=== PATIENT | male | born 1940 | race Caucasian/White ===

== ENCOUNTER 2021-12-11 12:00 | Emergency (ER) | payer OTHER, MEDICARE ==
[~2021-12-11] VITALS: Ht 190 cm; Wt 96.1 kg
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
[2021-12-11 12:38] LABS: HEMATOCRIT 38 % (40-54); HEMOGLOBIN 13.7 g/dL (13.3-17.7); MEAN CORPUSCULAR HEMOGLOBIN 33 pg (25-34); MEAN CORPUSCULAR HGB CONC 36 g/dL (32-36); MEAN CORPUSCULAR VOLUME 91 fL (80-99); MEAN PLATELET VOLUME 10.9 fL (9.0-12.2); PLATELET COUNT 256 10^3/uL (130-400); WHITE BLOOD COUNT 10.2 10^3/uL (4.3-11.0)
[2021-12-11 12:52] LABS: PROTHROMBIN TIME PATIENT 13.9 SEC (12.2-14.7)
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
[2021-12-11 12:59] LABS: CREATININE SERUM 1.21 MG/DL (0.60-1.30); POTASSIUM 3.9 MMOL/L (3.6-5.0)
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
[2021-12-11 13:26] VITALS: BP 133/86
== END 2021-12-11 13:26 | disposition home or self-care (01) ==
LOC: ER 12:02
DX: S30.1XXA Contusion of abdominal wall, initial encounter (principal); S09.91XA Unspecified injury of ear, initial encounter; I48.91 Unspecified atrial fibrillation; Z79.01 Long term (current) use of anticoagulants; V89.2XXA Person injured in unspecified motor-vehicle accident, traffic, initial encounter; Y92.410 Unspecified street and highway as the place of occurrence of the external cause
CPT/HCPCS: 36415; 70450; 71045; 72125; 80048; 85027; 85610; 85730; 93041

== ENCOUNTER 2021-12-23 11:52 | Emergency (ER) | payer MEDICARE ==
[~2021-12-23] VITALS: Ht 190.5 cm; Wt 96.1 kg
--- NOTE | 2021-12-23 12:30 | ED General ---
General Chief Complaint: General Problems/Pain Stated Complaint: N/V,FATIGUE Nursing Triage Note: PT TO RM 4 BY EMS WITH CC OF NAUSEA, VMOITING, AND DIZZINESS. EMS REPORTS HAD DIFFICULITY WAKING PT THIS AM AND HYPOTENSIVE ON SENCE. IV FLUIDS INFUSING UPON ARRIVAL. HX OF A-FIB. PT IS A&OX4. Source of Information: Patient, Old Records History of Present Illness Date Seen by Provider: Dec 23, 2021 Time Seen by Provider: 12:17 Initial Comments This is an 81-year-old male who presented to the ER via [facility] for concerns of altered mental status this morning. Patient was reported to have difficulty waking this morning. Spouse reports that he also had 1 episode of vomiting at home. Patient states he remembers having dizziness whenever he tried to get up and walk, does not recall vomiting. He is complaining of a little bit of nausea at this time. He was giving 1 L of normal saline per EMS upon arrival due to soft blood pressure of 83/58, he reports no recent illness, no falls. BG upon arrival 212. Allergies and Home Medications Allergies Coded Allergies: No Known Drug Allergies (Unverified , 12/23/21) Patient Home Medication List Home Medication List Reviewed: Yes Review of Systems Review of Systems Constitutional: dizziness, weakness EENTM: no symptoms reported Respiratory: no symptoms reported Cardiovascular: no symptoms reported, other (h/o afib ) Gastrointestinal: see HPI Genitourinary: No dysuria, No frequency, No hematuria, No incontinence, No pain Musculoskeletal: no symptoms reported Skin: no symptoms reported Psychiatric/Neurological: See HPI Hematologic/Lymphatic: No Symptoms Reported Immunological/Allergic: no symptoms reported Past Invtubj-Jejskc-Peljgv Hx Immunizations Up To Date First/Initial COVID19 Vaccinat: RECEIVED, UNK WHEN Second COVID19 Vaccination Lauri: RECEIVED, UNK WHEN Physical Exam Vital Signs Vital Signs - First Documented 12/23/21 11:59 Temp 36.2 Pulse 58 Resp 20 B/P (MAP) 125/62 (83) Pulse Ox 95 O2 Delivery Room Air Capillary Refill : Less Than 3 Seconds Height, Weight, BMI Height: '" Weight: lbs. oz. kg; 26.00 BMI Method: General Appearance: No Apparent Distress, WD/WN Eyes: Bilateral Eye Normal Inspection, Bilateral Eye PERRL, Bilateral Eye EOMI HEENT: PERRL/EOMI, Normal ENT Inspection, Pharynx Normal, Moist Mucous Me mbranes Neck: Full Range of Motion, Normal Inspection, Non Tender Respiratory: Lungs Clear, Normal Breath Sounds, No Accessory Muscle Use, No Respiratory Distress Cardiovascular: No Gallop, No Murmur, Normal Peripheral Pulses, Irregularly Irregular Gastrointestinal: Normal Bowel Sounds, No Organomegaly, No Pulsatile Mass, Non Tender, Soft Extremity: Normal Capillary Refill, Normal Inspection, Normal Range of Motion, No Calf Tenderness Neurologic/Psychiatric: Alert, Oriented x3, No Motor/Sensory Deficits, Normal Mood/Affect, production gear cutter II-XII Norm as Tested; No Facial Droop, No Motor Weakness, No Sensory Deficit Skin: Normal Color, Warm/Dry Progress/Results/Core Measures Suspected Sepsis SIRS Temperature: Pulse: 58 Respiratory Rate: 20 Laboratory Tests 12/23/21 12:00: White Blood Count 10.2 Blood Pressure 125 /62 Mean: 83 Laboratory Tests 12/23/21 12:00: Creatinine 1.27, INR Comment 1.1, Platelet Count 319, Total Bilirubin 0.6 Results/Orders Lab Results Laboratory Tests Test 12/23/21 12:00 12/23/21 13:51 12/23/21 14:43 Range/Units White Blood Count 10.2 4.3-11.0 10^3/uL Red Blood Count 3.59 L 4.30-5.52 10^6/uL Hemoglobin 11.7 L 13.3-17.7 g/dL Hematocrit 33 L 40-54 % Mean Corpuscular Volume 93 80-99 fL Mean Corpuscular Hemoglobin 33 25-34 pg Mean Corpuscular Hemoglobin Concent 35 32-36 g/dL Red Cell Distribution Width 12.5 10.0-14.5 % Platelet Count 319 130-400 10^3/uL Mean Platelet Volume 11.3 9.0-12.2 fL Immature Granulocyte % (Auto) 0 % Neutrophils (%) (Auto) 84 H 42-75 % Lymphocytes (%) (Auto) 9 L 12-44 % Monocytes (%) (Auto) 5 0-12 % Eosinophils (%) (Auto) 1 0-10 % Basophils (%) (Auto) 1 0-10 % Neutrophils # (Auto) 8.6 H 1.8-7.8 10^3/uL Lymphocytes # (Auto) 0.9 L 1.0-4.0 10^3/uL Monocytes # (Auto) 0.5 0.0-1.0 10^3/uL Eosinophils # (Auto) 0.1 0.0-0.3 10^3/uL Basophils # (Auto) 0.1 0.0-0.1 10^3/uL Immature Granulocyte # (Auto) 0.0 0.0-0.1 10^3/uL Prothrombin Time 14.2 12.2-14.7 SEC INR Comment 1.1 0.8-1.4 Activated Partial Thromboplast Time 26 24-35 SEC D-Dimer 0.98 H 0.00-0.49 UG/ML Sodium Level 139 135-145 MMOL/L Potassium Level 4.3 3.6-5.0 MMOL/L Chloride Level 102 98-107 MMOL/L Carbon Dioxide Level 24 21-32 MMOL/L Anion Gap 13 5-14 MMOL/L Blood Urea Nitrogen 30 H 7-18 MG/DL Creatinine 1.27 0.60-1.30 MG/DL Estimat Glomerular Filtration Rate 57 BUN/Creatinine Ratio 24 Glucose Level 242 H 70-105 MG/DL Calcium Level 11.0 H 8.5-10.1 MG/DL Corrected Calcium 11.0 H 8.5-10.1 MG/DL Magnesium Level 1.3 L 1.6-2.4 MG/DL Total Bilirubin 0.6 0.1-1.0 MG/DL Aspartate Amino Transf (AST/SGOT) 16 5-34 U/L Alanine Aminotransferase (ALT/SGPT) 15 0-55 U/L Alkaline Phosphatase 73 40-136 U/L Total Creatine Kinase 73 30-200 U/L Creatine Kinase MB 2.3 <6.6 NG/ML Myoglobin 90.8 10.0-92.0 NG/ML Troponin I 0.069 H 0.060 H <0.028 NG/ML Total Protein 7.2 6.4-8.2 GM/DL Albumin 4.0 3.2-4.5 GM/DL Urine Color YELLOW Urine Clarity CLEAR Urine pH 6.5 5-9 Urine Specific [place] 1.015 L 1.016-1.022 Urine Protein NEGATIVE NEGATIVE Urine Glucose (UA) TRACE H NEGATIVE Urine Ketones NEGATIVE NEGATIVE Urine Nitrite NEGATIVE NEGATIVE Urine Bilirubin NEGATIVE NEGATIVE Urine Urobilinogen 0.2 < = 1.0 MG/DL Urine Leukocyte Esterase NEGATIVE NEGATIVE Urine RBC (Auto) NEGATIVE NEGATIVE Urine RBC NONE /HPF Urine WBC NONE /HPF Urine Squamous Epithelial Cells NONE /HPF Urine Crystals NONE /LPF Urine Bacteria NEGATIVE /HPF Urine Casts NONE /LPF Urine Mucus NEGATIVE /LPF Urine Culture Indicated NO My Orders Orders - LINDA FORDE APRN Ua Culture If Indicated (12/23/21 12:08) Cbc With Automated Diff (12/23/21 12:25) Protime With Inr (12/23/21 12:25) Partial Thromboplastin Time (12/23/21 12:25) Comprehensive Metabolic Panel (12/23/21 12:25) Fibrin Degradation Products (12/23/21 12:25) Troponin I [place] (12/23/21 12:25) Chest 1 View, Ap/Pa Only (12/23/21 12:25) Ekg Tracing (12/23/21 12:25) Accucheck Stat ONCE (12/23/21 12:25) Ed Iv/Invasive Line Start (12/23/21 12:25) Vital Signs Stroke Patient Q15M (12/23/21 12:25) Ct Head Wo-R/O Stroke (12/23/21 12:25) O2 (12/23/21 12:25) Intake & Output 06,14,22 (12/23/21 12:25) Monitor-Rhythm Ecg Trace Only (12/23/21 12:25) Dysphagia Screening Tool Q10MX1 (12/23/21 12:25) Magnesium (12/23/21 12:44) Creatine Kinase (12/23/21 12:44) Creatine Kinase Mb (12/23/21 12:44) Myoglobin Serum (12/23/21 12:44) Troponin I Ghazal (12/23/21 15:00) Lidocaine 2% (Urojet) (Xylocaine Urojet) (12/23/21 14:30) [place] Cath (12/23/21 15:03) Magnesium Oxide Tablet (Mag Ox Tablet) (12/23/21 15:45) Medications Given in ED Vital Signs/I&O 12/23/21 12/23/21 11:59 16:37 Temp 36.2 Pulse 58 73 Resp 20 20 B/P (MAP) 125/62 (83) 138/76 Pulse Ox 95 93 O2 Delivery Room Air Room Air Capillary Refill : Less Than 3 Seconds Blood Pressure Mean: 83 Progress Note : Progress Note Patient examined and in no acute distress. No focal or gross neurological deficits appreciated on exam. He currently has 1 L of normal saline infusing. His vital signs are stable at this time. He does have a history of atrial fibrillation, rate controlled. Currently rate of 70s. He is reporting a little bit of nausea but no other symptoms at this time. States that he does not recall vomiting earlier today, his only recollection is of feeling dizziness. Labs reviewed, no elevation in white count, Hgb stable. BUN-30 likely from dehydration. He responded well with one liter NS, BP 120's. HR stable. Slightly increased Troponin-0.069. Remains asymptomatic. CXR unremarkable, UA neg for UTI. CT negative for acute pathology. 1259: Discussed with Dr. Graves, will monitor in ER for 3 hour troponin repeat. Repeat troponin decreased 0.060, updated Dr. Graves. As he has no established almond paste mixer, we will schedule him follow up in office. Appointment made prior to patient discharge. Discussed use of anticoagulants with patient and spouse, no contraindications noted. However, they would like to wait for his follow up with cardiology in 2 d ays before starting. Discharge POC reviewed and they are agreeable with plan. ECG Initial ECG Impression Date: Dec 23, 2021 Initial ECG Impression Time: 12:40 Initial ECG Rate: 69 Initial ECG Rhythm: A Fib/Flutter Initial ECG Impression: Atrial Fibrillation Initial ECG Comparisson: No Previous ECG Available Diagnostic Imaging Diagonstic Imaging: CT Plain Films/CT/US/NM/MRI: head Comments [facility]. [place], [place] NAME: WAYNE ABRAMS [facility] REC#: [id number] PT STATUS: REG ER : 1940 PHYSICIAN: LINDA FORDE APRN ADMIT DATE: 12/23/21/ER Draft Date of Exam:12/23/21 CT HEAD WO-R/O STROKE CLINICAL INDICATION: Patient with nausea, vomiting and fatigue. Patient had trouble waking up this morning. EXAM: Axial CT scan of the brain performed without IV contrast. Auto Exposure Controls were utilized during the CT exam to meet ALARA standards for radiation dose reduction. COMPARISON: CT scan of the head and cervical spine without contrast dated 12/11/2021. FINDINGS: There is no evidence of acute cerebral infarct, intracranial hemorrhage, or gross mass effect. The brain parenchymal volume appears appropriate for patient's age. There is normal martinez-white matter distinction. There is no significant midline shift or herniation. There is no evidence of hydrocephalus. The basal cisterns are unremarkable. The skull, extracranial soft tissue, and orbits are unremarkable. There is oodzc-sg-nlrmdgad amount of mucosal thickening involving the frontal sinus and ethmoid sinus. There is minimal mucosal thickening involving the right maxillary sinus. Temporal bones show no significant abnormality. IMPRESSION: 1: There is no CT evidence of acute intracranial process. There is no dense vessel sign. Results of this report were discussed with Linda Forde APRN, via the telephone on 12/23/2021 at 1337 hours. Dictated on workstation # [id number] Dict: 12/23/21 1318 Trans: 12/23/21 1345 [id number] [id number] Interpreted by: WILD PRATT MD Electronically signed by: Maria A Imaging: Xray Plain Films/CT/US/NM/MRI: chest Comments [facility] [place] NAME: WAYNE ABRAMS [facility] REC#: [id number] PT STATUS: REG ER : 1940 PHYSICIAN: LINDA FORDE APRN ADMIT DATE: 12/23/21/ER Draft Date of Exam:12/23/21 CHEST 1 VIEW, AP/PA ONLY HISTORY: Altered mental status, nausea, vomiting, and dizziness. COMPARISON: 12/11/2021. TECHNIQUE: Frontal view of the chest. FINDINGS: Lung volumes are normal. There is elevation of the right hemidiaphragm, which is stable since the prior exam. There is linear opacity in the left lung base. There is no pleural effusion or pneumothorax. The cardiac silhouette is normal in size. IMPRESSION: 1. Linear opacity in the left lung base, may represent atelectasis or infiltrate. Dictated on workstation # [id number] Dict: 12/23/21 1257 Trans: 12/23/21 1300 [id number] Interpreted by: LINO ROCHA MD Electronically signed by: Reviewed: Reviewed by Me Departure Communication (Admissions) Time/Spoke to Consulting Phy: 12:59 Dr. Graves Impression Primary Impression: Dehydration Additional Impressions: Dizziness Atrial fibrillation Disposition: 01 HOME, SELF-CARE Condition: Improved Departure-Patient Inst. Decision time for Depature: 15:23 Referrals: NO,LOCAL PHYSICIAN (PCP/Family) Primary Care Physician Patient Instructions: Dehydration, Adult ED Add. Discharge Instructions: Plan: 1. Follow up with Dr. Graves with cardiology on at 1:40pm, office is located [facility] [address] [place], [address] . Please arrive 30 minutes early to fill out paperwork. 2. Drink plenty of fluids to keep your urine pale yellow. 3. Follow up with your primary care provider in 7-10 days, please call to schedule. 4. Return for any new, concerning, or worsening symptoms. All discharge instructions reviewed with patient and/or family. Voiced understanding. Copy Copies To 1: JEFFREY GRAVES JR, MD Copies To 2: GERSON NICOLE MD, STORMY D RESIDENCE LEASING AGENT Dec 23, 2021 12:30
[2021-12-23 12:31] LABS: BASOPHILS # (AUTO) 0.1 10^3/uL (0.0-0.1); BASOPHILS % (AUTO) 1 % (0-10); EOSINOPHILS # (AUTO) 0.1 10^3/uL (0.0-0.3); EOSINOPHILS % (AUTO) 1 % (0-10); HEMATOCRIT 33 % (40-54); HEMOGLOBIN 11.7 g/dL (13.3-17.7); LYMPHOCYTES # (AUTO) 0.9 10^3/uL (1.0-4.0); LYMPHOCYTES % (AUTO) 9 % (12-44); MEAN CORPUSCULAR HEMOGLOBIN 33 pg (25-34); MEAN CORPUSCULAR HGB CONC 35 g/dL (32-36); MEAN CORPUSCULAR VOLUME 93 fL (80-99); MEAN PLATELET VOLUME 11.3 fL (9.0-12.2); MONOCYTES # (AUTO) 0.5 10^3/uL (0.0-1.0); MONOCYTES % (AUTO) 5 % (0-12); NEUTROPHILS # (AUTO) 8.6 10^3/uL (1.8-7.8); NEUTROPHILS % (AUTO) 84 % (42-75); PLATELET COUNT 319 10^3/uL (130-400); WHITE BLOOD COUNT 10.2 10^3/uL (4.3-11.0)
[2021-12-23 12:36] LABS: POTASSIUM 4.3 MMOL/L (3.6-5.0)
[2021-12-23 12:38] LABS: TOTAL PROTEIN 7.2 GM/DL (6.4-8.2)
[2021-12-23 12:39] LABS: FIBRIN DEGRADATION PRODUCTS 0.98 UG/ML (0.00-0.49); INR 1.1 (0.8-1.4); PROTHROMBIN TIME PATIENT 14.2 SEC (12.2-14.7)
[2021-12-23 12:40] LABS: BILIRUBIN,TOTAL 0.6 MG/DL (0.1-1.0)
[2021-12-23 12:42] LABS: CREATININE SERUM 1.27 MG/DL (0.60-1.30)
--- NOTE | 2021-12-23 13:00 | Diagnostic Imaging Report ---
HISTORY: Altered mental status, nausea, vomiting, and dizziness. COMPARISON: 12/11/2021. TECHNIQUE: Frontal view of the chest. FINDINGS: Lung volumes are normal. There is elevation of the right hemidiaphragm, which is stable since the prior exam. There is linear opacity in the left lung base. There is no pleural effusion or pneumothorax. The cardiac silhouette is normal in size. IMPRESSION: 1. Linear opacity in the left lung base, may represent atelectasis or infiltrate. Dictated by: Dictated on workstation # [id number]
[2021-12-23 13:03] LABS: MAGNESIUM 1.3 MG/DL (1.6-2.4)
[2021-12-23 13:10] LABS: CREATINE KINASE MB 2.3 NG/ML (<6.6)
--- NOTE | 2021-12-23 13:45 | Diagnostic Imaging Report ---
CLINICAL INDICATION: Patient with nausea, vomiting and fatigue. Patient had trouble waking up this morning. EXAM: Axial CT scan of the brain performed without IV contrast. Auto Exposure Controls were utilized during the CT exam to meet ALARA standards for radiation dose reduction. COMPARISON: CT scan of the head and cervical spine without contrast dated 12/11/2021. FINDINGS: There is no evidence of acute cerebral infarct, intracranial hemorrhage, or gross mass effect. The brain parenchymal volume appears appropriate for patient's age. There is normal martinez-white matter distinction. There is no significant midline shift or herniation. There is no evidence of hydrocephalus. The basal cisterns are unremarkable. The skull, extracranial soft tissue, and orbits are unremarkable. There is dvrxs-jt-kiuwkxih amount of mucosal thickening involving the frontal sinus and ethmoid sinus. There is minimal mucosal thickening involving the right maxillary sinus. Temporal bones show no significant abnormality. IMPRESSION: 1: There is no CT evidence of acute intracranial process. There is no dense vessel sign. Results of this report were discussed with Linda Munoz APRN, via the telephone on 12/23/2021 at 1337 hours. Dictated by: Dictated on workstation # [id number]
[2021-12-23] MEDS ORDERED: LIDOCAINE UROJET 2% GEL 10 ML PKG ONE (14:30)
[2021-12-23 14:50] LABS: BILIRUBIN,URINE NEGATIVE (NEGATIVE); CLARITY,URINE CLEAR; COLOR,URINE YELLOW; GLUCOSE, URINE (UA) TRACE (NEGATIVE); KETONES,URINE NEGATIVE (NEGATIVE); LEUKOCYTE ESTERASE ,URINE NEGATIVE (NEGATIVE); NITRITE,URINE NEGATIVE (NEGATIVE); PH,URINE 6.5 (5-9); PROTEIN,URINE NEGATIVE (NEGATIVE)
[2021-12-23 15:20] LABS: BACTERIA,URINE NEGATIVE /HPF
[2021-12-23] MEDS ORDERED: MAGNESIUM OXIDE (MAG-OX)400 MG TAB PO ONE (15:45)
[2021-12-23 16:37] VITALS: BP 138/76
== END 2021-12-23 16:37 | disposition home or self-care (01) ==
LOC: EDUNIT# 11:52 → ER 11:56
DX: E86.0 Dehydration (principal); I48.91 Unspecified atrial fibrillation
CPT/HCPCS: 36415; 51702; 70450; 71045; 80053; 81000; 82550; 82553; 83735; 83874; 84484; 85025; 85379; 85610; 85730; 93005; 93041

== ENCOUNTER → 2021-12-31 | Outpatient (CLI) | payer MEDICARE | LOC: CARD 13:47 | PROVIDERS: ATTEND Internal Medicine Cardiovascular Disease | DX: I08.2 Rheumatic disorders of both aortic and tricuspid valves (principal); I48.21 Permanent atrial fibrillation | CPT/HCPCS: 93306 ==

== ENCOUNTER 2022-01-23 12:21 | Inpatient (IN) | payer MEDICARE ==
[~2022-01-23] VITALS: Ht 190.5 cm; Wt 85.7 kg
[2022-01-23 14:14] LABS: BASOPHILS % (AUTO) 0 % (0-10); EOSINOPHILS % (AUTO) 1 % (0-10); HEMATOCRIT 21 % (40-54); HEMOGLOBIN 7.4 g/dL (13.3-17.7); LYMPHOCYTES # (AUTO) 0.8 10^3/uL (1.0-4.0); LYMPHOCYTES % (AUTO) 12 % (12-44); MEAN CORPUSCULAR HEMOGLOBIN 32 pg (25-34); MEAN CORPUSCULAR HGB CONC 35 g/dL (32-36); MEAN CORPUSCULAR VOLUME 93 fL (80-99); MEAN PLATELET VOLUME 10.3 fL (9.0-12.2); MONOCYTES # (AUTO) 0.5 10^3/uL (0.0-1.0); MONOCYTES % (AUTO) 8 % (0-12); NEUTROPHILS # (AUTO) 5.1 10^3/uL (1.8-7.8); NEUTROPHILS % (AUTO) 79 % (42-75); PLATELET COUNT 384 10^3/uL (130-400); WHITE BLOOD COUNT 6.4 10^3/uL (4.3-11.0)
[2022-01-23 14:17] LABS: ALBUMIN 4.3 GM/DL (3.2-4.5); POTASSIUM 3.9 MMOL/L (3.6-5.0)
[2022-01-23 14:18] LABS: CALCIUM 10.7 MG/DL (8.5-10.1)
[2022-01-23 14:21] LABS: BILIRUBIN,TOTAL 0.4 MG/DL (0.1-1.0); INR 1.6 (0.8-1.4); PROTHROMBIN TIME PATIENT 19.5 SEC (12.2-14.7)
[2022-01-23 14:23] LABS: CREATININE SERUM 0.97 MG/DL (0.60-1.30)
[2022-01-23] MEDS ORDERED: IOHEXOL 350 MG/ML 100 ML (OMNIPAQUE 350) VIAL IV ONE (14:45)
[2022-01-23] MEDS ORDERED: HOLD METFORMIN - RECEIVED CONTRAST 20 ML VIAL IV SCH (14:45)
[2022-01-23] MEDS ORDERED: NS 100 ML (IVPB) BAG IV ONE (14:45)
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
[2022-01-23] MEDS ORDERED: PANTOPRAZOLE 40 MG (PROTONIX) VIAL IV ONE (17:00)
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
[2022-01-23 18:20] VITALS: BP 130/72
[2022-01-23] MEDS ORDERED: NS IV 1000 ML 1,000 ML ONE (18:33)
[2022-01-23] MEDS: NS IV 1000 ML 1,000 ML IV SCH (19:44)
[2022-01-23] MEDS ORDERED: MILK OF MAGNESIA 400 MG/5 ML 30 ML UDC PO PRN (22:00)
[2022-01-23] MEDS ORDERED: BENZONATATE 100 MG (TESSALON) CAPSULE PO PRN (22:00)
[2022-01-23] MEDS ORDERED: ONDANSETRON 4 MG/2 ML (SDV) Z0FRAN IV PRN (22:00)
[2022-01-23] MEDS ORDERED: MELATONIN 3 MG TABLET PO PRN (22:00)
[2022-01-23] MEDS ORDERED: ANTACID SUSP 30 ML UDC (MYLANTA) PO PRN (22:00)
[2022-01-23 23:39] VITALS: BP 105/55
[2022-01-24] VITALS (9 sets, daily range): BP systolic 105–142; BP diastolic 59–73
[2022-01-24 05:34] LABS: BASOPHILS % (AUTO) 1 % (0-10); EOSINOPHILS # (AUTO) 0.1 10^3/uL (0.0-0.3); EOSINOPHILS % (AUTO) 2 % (0-10); LYMPHOCYTES # (AUTO) 0.9 10^3/uL (1.0-4.0); LYMPHOCYTES % (AUTO) 16 % (12-44); MEAN CORPUSCULAR HEMOGLOBIN 33 pg (25-34); MEAN CORPUSCULAR HGB CONC 35 g/dL (32-36); MEAN CORPUSCULAR VOLUME 93 fL (80-99); MEAN PLATELET VOLUME 9.9 fL (9.0-12.2); MONOCYTES # (AUTO) 0.6 10^3/uL (0.0-1.0); MONOCYTES % (AUTO) 11 % (0-12); NEUTROPHILS # (AUTO) 3.8 10^3/uL (1.8-7.8); NEUTROPHILS % (AUTO) 70 % (42-75); PLATELET COUNT 349 10^3/uL (130-400); WHITE BLOOD COUNT 5.4 10^3/uL (4.3-11.0)
[2022-01-24 05:38] LABS: HEMOGLOBIN 6.7 g/dL (13.3-17.7)
[2022-01-24 05:39] LABS: HEMATOCRIT 19 % (40-54)
[2022-01-24] MEDS ORDERED: inSUlin ASPART (NovoLOG) 1 UNIT/0.01 ML (CHARGE PER UNIT) SC SCH (06:00)
[2022-01-24] MEDS ORDERED: NS IV 500 ML 500 ML IV SCH (06:15)
[2022-01-24] MEDS ORDERED: NF-MINO10T PO (06:29)
[2022-01-24] MEDS ORDERED: HYDR25TA4 PO (06:29)
[2022-01-24] MEDS ORDERED: OMEG-109 PO (06:36)
[2022-01-24] MEDS ORDERED: ASPI-1238 PO (06:36)
[2022-01-24] MEDS ORDERED: ATOR10TA66 PO (06:36)
[2022-01-24] MEDS ORDERED: METO-333 PO (06:36)
[2022-01-24] MEDS ORDERED: METF-397 PO (06:36)
[2022-01-24] MEDS ORDERED: AMLO-251 PO (06:36)
[2022-01-24] MEDS ORDERED: LISI40TA9 PO (06:36)
[2022-01-24] MEDS ORDERED: GLIP10TA13 PO (06:36)
[2022-01-24] MEDS: NS IV 1000 ML 1,000 ML IV SCH ×2 (07:53→21:52)
[2022-01-24] MEDS: PANTOPRAZOLE 40 MG (PROTONIX) VIAL IV SCH ×2 (07:54→19:29)
--- NOTE | 2022-01-24 08:03 | Progress Note - Surgery ---
CARLO RITCHIE 01/24/22 0803: Subjective Date Seen by a Provider: Jan 24, 2022 Time Seen by a Provider: 07:58 Subjective/Events-last exam Patient is awake and alert in his bed this morning, no family at bedside. Patient reports that his nausea has improved from yesterday and has had no vomiting. Patient also reports that he feels a little stronger and less fatigued today. Patient denies any abdominal pain and is nontender on palpation. Patient has no new complaints. Review of Systems General: No Chills, No Night Sweats HEENT: No Head Aches, No Visual Changes Pulmonary: No Dyspnea, No Cough Cardiovascular: No: Chest Pain, Palpitations Gastrointestinal: Nausea; No: Vomiting, Abdominal Pain Genitourinary: No Dysuria, No Frequency Musculoskeletal: No: neck pain, shoulder pain Neurological: Weakness; No: Numbness, Incoordination Objective Exam Vital Signs Date Time Temp Pulse Resp B/P (MAP) Pulse Ox O2 Delivery O2 Flow Rate FiO2 01/24/22 07:25 36.6 82 18 113/65 (81) 95 Room Air 01/24/22 07:00 88 01/24/22 04:52 37.0 81 20 108/65 (79) 98 Room Air 01/24/22 01:00 91 01/23/22 23:39 37.0 83 20 105/55 (72) 95 Room Air 01/23/22 20:29 80 01/23/22 19:45 99 Room Air 01/23/22 18:54 Room Air 01/23/22 18:20 35.7 76 20 130/72 (91) 99 01/23/22 18:15 37.1 74 18 120/61 100 Room Air 01/23/22 12:35 37.1 86 18 110/61 (77) 100 Room Air I & O 01/24/22 07:00 Intake Total 220 ml Output Total 550 ml Balance -330 ml Capillary Refill : Less Than 3 Seconds General Appearance: No Apparent Distress, WD/WN HEENT: PERRL/EOMI, Normal ENT Inspection Neck: Non Tender, Supple Respiratory: Chest Non Tender, No Accessory Muscle Use, No Respiratory Distress Cardiovascular: Regular Rate, Rhythm, No Edema, Normal Peripheral Pulses Gastrointestinal: non tender, soft Extremity: Normal Inspection, Non Tender Neurologic/Psychiatric: Alert, Oriented x3, Normal Mood/Affect Skin: Warm/Dry, Pallor Lymphatic: No Adenopathy Results Lab Laboratory Tests 01/23/22 13:36: White Blood Count 6.4, Red Blood Count 2.29L, Hemoglobin 7.4L, Hematocrit 21L, Mean Corpuscular Volume 93, Mean Corpuscular Hemoglobin 32, Mean Corpuscular Hemoglobin Concent 35, Red Cell Distribution Width 14.8H, Platelet Count 384, Mean Platelet Volume 10.3, Immature Granulocyte % (Auto) 1, Neutrophils (%) (Auto) 79H, Lymphocytes (%) (Auto) 12, Monocytes (%) (Auto) 8, Eosinophils (%) (Auto) 1, Basophils (%) (Auto) 0, Neutrophils # (Auto) 5.1, Lymphocytes # (Auto) 0.8L, Monocytes # (Auto) 0.5, Eosinophils # (Auto) 0.0, Basophils # (Auto) 0.0, Immature Granulocyte # (Auto) 0.0, Prothrombin Time 19.5H, INR Comment 1.6H, Activated Partial Thromboplast Time 38H, Sodium Level 141, Potassium Level 3.9, Chloride Level 104, Carbon Dioxide Level 23, Anion Gap 14, Blood Urea Nitrogen 22H, Creatinine 0.97, Estimat Glomerular Filtration Rate 78, BUN/Creatinine Ratio 23, Glucose Level 146H, Calcium Level 10.7H, Corrected Calcium 10.5H, Total Bilirubin 0.4, Aspartate Amino Transf (AST/SGOT) 14, Alanine Aminotransferase (ALT/SGPT) 15, Alkaline Phosphatase 60, Total Protein 7.0, Albumin 4.3 01/24/22 05:05: White Blood Count 5.4, Red Blood Count 2.06L, Hemoglobin 6.7*L, Hematocrit 19*L, Mean Corpuscular Volume 93, Mean Corpuscular Hemoglobin 33, Mean Corpuscular Hemoglobin Concent 35, Red Cell Distribution Width 14.5, Platelet Count 349, Mean Platelet Volume 9.9, Immature Granulocyte % (Auto) 0, Neutrophils (%) (Auto) 70, Lymphocytes (%) (Auto) 16, Monocytes (%) (Auto) 11, Eosinophils (%) (Auto) 2, Basophils (%) (Auto) 1, Neutrophils # (Auto) 3.8, Lymphocytes # (Auto) 0.9L, Monocytes # (Auto) 0.6, Eosinophils # (Auto) 0.1, Basophils # (Auto) 0.0, Immature Granulocyte # (Auto) 0.0 01/24/22 06:20: Glucometer 154H Assessment/Plan Assessment/Plan Assessment/Plan Anemia Melena Weakness CKD Long-term anticoagulation Monitor Hg, transfuse as needed, 6.7 this morning Currently NPO Discuss endoscopy for possible GI bleed Hold anticoagulants, last took Xarelto 7:00 01/23 Continue PPI Continue IV fluids ROBERTO VILLALPANDO DO 01/24/22 1615: Subjective Subjective/Events-last exam Patient states he is doing well. He is currently getting some packed red blood cells. He did have a little bit further drop in hemoglobin. Down to 6.7. Daphne ent has no abdominal pain. Denies any other complaints. Nausea resolved. Denies nausea vomiting fever sweats chills shortness of breath or chest pain. Objective Exam General Appearance: No Apparent Distress, WD/WN HEENT: PERRL/EOMI, Normal ENT Inspection Neck: Non Tender, Supple Respiratory: Chest Non Tender, No Accessory Muscle Use, No Respiratory Distress Cardiovascular: Regular Rate, Rhythm, No JVD Gastrointestinal: non tender, soft Extremity: Normal Inspection, Non Tender Neurologic/Psychiatric: Alert, Oriented x3, Normal Mood/Affect Skin: Warm/Dry, Pallor Lymphatic: No Adenopathy Assessment/Plan Assessment/Plan Assessment/Plan Anemia Melena Weakness CKD Long-term anticoagulation Monitor Hg, transfuse as needed, 6.7 this morning Currently NPO start clears if hgb stable Discussed risks and beneftis of EGD/Colonoscopy and he understands, plan for WEDNESDAY Will prep tomorrow. Hold anticoagulants, last took Xarelto 7:00 01/23 Continue PPI Continue IV fluids Supervisory-Addendum Brief Verification & Attestation Participated in pt care: history, MDM, physical Personally performed: exam, history, MDM, supervision of care Care discussed with: Medical Student Procedures: n/a Results interpretation: Verified all documentation Verification and Attestation of Medical Student E/M Service A medical student performed and documented this service in my presence. I reviewed and verified all information documented by the medical student and made modifications to such information, when appropriate. I personally performed the physical exam and medical decision making. Roberto Villalpando, Jan 24, 2022,16:14 CARLO RITCHIE Jan 24, 2022 08:03 ROBERTO VILLALPANDO DO Jan 24, 2022 16:15
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
[2022-01-24] MEDS: AtorvaSTATin TABLET 10 MG TABLET PO SCH (09:45)
[2022-01-24] MEDS: inSUlin ASPART (NovoLOG) 1 UNIT/0.01 ML (CHARGE PER UNIT) SC SCH ×3 (12:21→23:52)
[2022-01-25 04:27] VITALS: BP 131/74
[2022-01-25 05:39] LABS: HEMATOCRIT 25 % (40-54); HEMOGLOBIN 8.7 g/dL (13.3-17.7); MEAN CORPUSCULAR HEMOGLOBIN 32 pg (25-34); MEAN CORPUSCULAR HGB CONC 35 g/dL (32-36); MEAN CORPUSCULAR VOLUME 91 fL (80-99); MEAN PLATELET VOLUME 9.8 fL (9.0-12.2); PLATELET COUNT 352 10^3/uL (130-400); WHITE BLOOD COUNT 5.1 10^3/uL (4.3-11.0)
[2022-01-25 05:58] LABS: CREATININE SERUM 0.87 MG/DL (0.60-1.30); POTASSIUM 3.6 MMOL/L (3.6-5.0)
[2022-01-25] MEDS: inSUlin ASPART (NovoLOG) 1 UNIT/0.01 ML (CHARGE PER UNIT) SC SCH ×3 (06:14→18:56)
[2022-01-25 07:29] VITALS: BP 131/82
--- NOTE | 2022-01-25 07:49 | Progress Note - Surgery ---
CARLO RITCHIE 01/25/22 0749: Subjective Date Seen by a Provider: Jan 25, 2022 Time Seen by a Provider: 07:46 Subjective/Events-last exam Patient is awake and alert in his bed this morning, no family at bedside. Patient states that he feels he has been getting stronger and feels better overall. He has not been having any N/V or any abdominal pain. Review of Systems General: No Chills, No Night Sweats HEENT: No Head Aches, No Visual Changes Pulmonary: No Dyspnea, No Cough Cardiovascular: No: Chest Pain, Palpitations Gastrointestinal: No: Nausea, Vomiting, Abdominal Pain Genitourinary: No Dysuria, No Frequency Musculoskeletal: No: neck pain, shoulder pain Neurological: Weakness; No: Numbness, Incoordination Objective Exam Vital Signs Date Time Temp Pulse Resp B/P (MAP) Pulse Ox O2 Delivery O2 Flow Rate FiO2 01/25/22 07:29 36.7 86 20 131/82 (98) 95 Room Air 01/25/22 07:00 77 01/25/22 04:27 36.9 84 18 131/74 (93) 94 Room Air 01/25/22 00:43 83 01/24/22 23:46 37.0 92 18 142/62 (88) 95 Room Air 01/24/22 19:37 36.7 85 18 133/67 (89) 93 Room Air 01/24/22 19:30 Room Air 01/24/22 18:50 77 01/24/22 16:08 37.3 83 18 118/64 (82) 94 Room Air 01/24/22 12:28 93 01/24/22 11:39 36.4 71 20 128/71 95 Room Air 01/24/22 11:29 36.7 77 18 137/64 (88) 94 Room Air 01/24/22 08:49 36.7 83 20 110/59 98 Room Air 01/24/22 08:21 36.8 82 20 105/73 99 Room Air 01/24/22 08:00 97 Room Air I & O 01/25/22 07:00 Intake Total 1650 ml Output Total 1875 ml Balance -225 ml Capillary Refill : Less Than 3 Seconds General Appearance: No Apparent Distress, WD/WN HEENT: PERRL/EOMI, Normal ENT Inspection Neck: Non Tender, Supple Respiratory: Chest Non Tender, No Accessory Muscle Use, No Respiratory Distress Cardiovascular: Regular Rate, Rhythm, No JVD Gastrointestinal: non tender, soft Extremity: Normal Inspection, Non Tender Neurologic/Psychiatric: Alert, Oriented x3, Normal Mood/Affect Skin: Warm/Dry, Pallor Lymphatic: No Adenopathy Results Lab Laboratory Tests 01/24/22 11:12: Glucometer 149H 01/24/22 13:09: Hemoglobin 8.0L, Hematocrit 23L 01/24/22 17:53: Glucometer 135H 01/24/22 23:44: Glucometer 143H 01/25/22 05:14: White Blood Count 5.1, Red Blood Count 2.76L, Hemoglobin 8.7L, Hematocrit 25L, Mean Corpuscular Volume 91, Mean Corpuscular Hemoglobin 32, Mean Corpuscular Hemoglobin Concent 35, Red Cell Distribution Width 15.0H, Platelet Count 352, Mean Platelet Volume 9.8, Sodium Level 138, Potassium Level 3.6, Chloride Level 106, Carbon Dioxide Level 23, Anion Gap 9, Blood Urea Nitrogen 9, Creatinine 0.87, Estimat Glomerular Filtration Rate 86, BUN/Creatinine Ratio 10, Glucose Level 159H, Calcium Level 10.0 Microbiology 01/23/22 MRSA Screen - Final, Complete MRSA not isolated Assessment/Plan Assessment/Plan Assessment/Plan Anemia Melena Weakness CKD Long-term anticoagulation Monitor Hg, transfuse as needed, 8.7 this morning Currently NPO Scheduled for EGD/colonoscopy tomorrow, will complete bowel prep today Hold anticoagulants, last took Xarelto 7:00 01/23 Continue PPI Continue IV fluids BAYRON VILLALPANDO DO 01/25/22 1221: Subjective Subjective/Events-last exam Patient tolerating bowel prep. His hemoglobin has improved. Feeling better overall. He is not having nausea or vomiting or abdominal pain. Denies any fever sweats chills shortness of breath or chest pain. Objective Exam General Appearance: No Apparent Distress, WD/WN HEENT: PERRL/EOMI, Normal ENT Inspection Neck: Non Tender, Supple Respiratory: Chest Non Tender, No Accessory Muscle Use, No Respiratory Distress Gastrointestinal: non tender, soft Extremity: Normal Inspection, Non Tender Neurologic/Psychiatric: Alert, Oriented x3, Normal Mood/Affect Skin: Warm/Dry Lymphatic: No Adenopathy Assessment/Plan Assessment/Plan Assessment/Plan Anemia Melena Weakness CKD Long-term anticoagulation Monitor Hg, transfuse as needed, 8.7 this morning Currently NPO Scheduled for EGD/colonoscopy tomorrow, will complete bowel prep today Hold anticoagulants, last took Xarelto 7:00 01/23 Continue PPI Continue IV fluids Supervisory-Addendum Brief Verification & Attestation Participated in pt care: history, MDM, physical Personally performed: exam, history, MDM, supervision of care Care discussed with: Medical Student Procedures: n/a Results interpretation: Verified all documentation Verification and Attestation of Medical Student E/M Service A medical student performed and documented this service in my presence. I reviewed and verified all information documented by the medical student and made modifications to such information, when appropriate. I personally performed the physical exam and medical decision making. Bayron Villalpando, Jan 25, 2022,12:21 CARLO RITCHIE Jan 25, 2022 07:49 BAYRON VILLALPANDO DO Jan 25, 2022 12:21
[2022-01-25] MEDS ORDERED: GOLYTELY POWDER 4000 ML BTL PO NR (08:00)
[2022-01-25] MEDS: PANTOPRAZOLE 40 MG (PROTONIX) VIAL IV SCH ×2 (09:34→19:55)
[2022-01-25] MEDS: AtorvaSTATin TABLET 10 MG TABLET PO SCH (09:34)
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
[2022-01-25 11:42] VITALS: BP 157/87
[2022-01-25] MEDS: NS IV 1000 ML 1,000 ML IV SCH (11:51)
[2022-01-25 15:30] VITALS: BP 136/82
[2022-01-25 19:48] VITALS: BP 149/78
[2022-01-25 23:40] VITALS: BP 145/71
[2022-01-26] VITALS (7 sets, daily range): BP systolic 119–166; BP diastolic 66–87
[2022-01-26] MEDS: inSUlin ASPART (NovoLOG) 1 UNIT/0.01 ML (CHARGE PER UNIT) SC SCH ×4 (00:19→17:38)
[2022-01-26] MEDS: NS IV 1000 ML 1,000 ML IV SCH ×2 (01:39→14:12)
[2022-01-26 05:42] LABS: HEMATOCRIT 26 % (40-54); HEMOGLOBIN 8.7 g/dL (13.3-17.7); MEAN CORPUSCULAR HEMOGLOBIN 31 pg (25-34); MEAN CORPUSCULAR HGB CONC 34 g/dL (32-36); MEAN CORPUSCULAR VOLUME 90 fL (80-99); MEAN PLATELET VOLUME 9.9 fL (9.0-12.2); PLATELET COUNT 348 10^3/uL (130-400); WHITE BLOOD COUNT 6.6 10^3/uL (4.3-11.0)
[2022-01-26 06:01] LABS: CALCIUM 9.8 MG/DL (8.5-10.1); CREATININE SERUM 0.82 MG/DL (0.60-1.30); POTASSIUM 3.5 MMOL/L (3.6-5.0)
[2022-01-26] MEDS ORDERED: PROPOFOL INJECTION 50 ML IV ONE (07:17)
[2022-01-26] MEDS ORDERED: LACTATED RINGERS 1,000 ML IV ONE (07:29)
--- NOTE | 2022-01-26 07:39 | Progress Note - Surgery ---
Subjective Date Seen by a Provider: Jan 26, 2022 Time Seen by a Provider: 07:37 Subjective/Events-last exam Patient doing well. Tolerated prep. NPO. Hgb stable. No abdominal pain. Denies n/v fever sweats chills shortness of breath or chest pain. Objective Exam Vital Signs Date Time Temp Pulse Resp B/P (MAP) Pulse Ox O2 Delivery O2 Flow Rate FiO2 01/26/22 07:00 110 01/26/22 04:00 37.0 75 16 153/83 (106) 97 Room Air 01/26/22 01:00 92 01/25/22 23:40 37.3 75 20 145/71 (95) 96 Room Air 01/25/22 20:00 Room Air 01/25/22 19:48 36.7 87 18 149/78 (101) 93 Room Air 01/25/22 19:00 84 01/25/22 15:30 36.2 67 18 136/82 (100) 97 Room Air 01/25/22 13:00 71 01/25/22 11:42 36.6 79 20 157/87 (110) 95 Room Air 01/25/22 08:00 Room Air I & O 01/26/22 07:00 Intake Total 6480 ml Output Total 1500 ml Balance 4980 ml Capillary Refill : Less Than 3 Seconds General Appearance: No Apparent Distress, WD/WN HEENT: PERRL/EOMI, Normal ENT Inspection Neck: Non Tender, Supple Respiratory: Chest Non Tender, No Accessory Muscle Use, No Respiratory Distress Cardiovascular: Regular Rate, Rhythm, No Murmur Gastrointestinal: non tender, soft Extremity: Normal Inspection, Non Tender Neurologic/Psychiatric: Alert, Oriented x3, Normal Mood/Affect Skin: Warm/Dry, Pallor Lymphatic: No Adenopathy Results Lab Laboratory Tests 01/25/22 11:38: Glucometer 180H 01/25/22 15:19: Glucometer 156H 01/25/22 17:04: Glucometer 130H 01/25/22 23:58: Glucometer 155H 01/26/22 05:22: White Blood Count 6.6, Red Blood Count 2.82L, Hemoglobin 8.7L, Hematocrit 26L, Mean Corpuscular Volume 90, Mean Corpuscular Hemoglobin 31, Mean Corpuscular Hemoglobin Concent 34, Red Cell Distribution Width 14.4, Platelet Count 348, Mean Platelet Volume 9.9, Sodium Level 141, Potassium Level 3.5L, Chloride Level 108H, Carbon Dioxide Level 21, Anion Gap 12, Blood Urea Nitrogen 5L, Creatinine 0.82, Estimat Glomerular Filtration Rate 88, BUN/Creatinine Ratio 6, Glucose Lev el 154H, Calcium Level 9.8 01/26/22 05:28: Glucometer 162H Microbiology 01/23/22 MRSA Screen - Final, Complete MRSA not isolated Assessment/Plan Assessment/Plan Assessment/Plan Anemia Melena Weakness CKD Long-term anticoagulation Monitor Hg, transfuse as needed Currently NPO for scope Scheduled for EGD/colonoscopy today Hold anticoagulants, last took Xarelto 7:00 01/23 Continue PPI Continue IV fluids BAYRON GRACE DO Jan 26, 2022 07:39
[2022-01-26] MEDS: LACTATED RINGERS 1,000 ML IV SCH ×2 (07:40→17:38)
[2022-01-26] MEDS ORDERED: HURRICAINE EXT TUBE (BENZOCAINE) XX ONE (08:15)
[2022-01-26] MEDS: PANTOPRAZOLE 40 MG (PROTONIX) VIAL IV SCH ×2 (08:57→20:34)
[2022-01-26] MEDS: AtorvaSTATin TABLET 10 MG TABLET PO SCH (08:57)
[2022-01-26] MEDS ORDERED: ACET325T38 PO (09:34)
[2022-01-26] MEDS ORDERED: RIVA15TA PO (09:34)
[2022-01-26] MEDS ORDERED: CHOL400T PO (09:34)
--- NOTE | 2022-01-26 10:07 | Physical Therapy Evaluation ---
PT Evaluation-General Medical Diagnosis Admission Date Jan 24, 2022 at 09:26 Medical Diagnosis: GI bleed Onset Date: Jan 24, 2022 Therapy Diagnosis Therapy Diagnosis: debility Precautions Precautions/Isolations: Standard Precautions Referral Physician: Marcellus Reason for Referral: Evaluation/Treatment Medical History Pertinent Medical History: Atrial Fib, DM, HTN, Renal Insufficiency History of Falls (past yr): No Prior Surgery (last 100 days): No Current History ER secondary to decreased Hgb Reviewed History: Yes Social History Home: Single Level Current Living Status: Spouse Entry Into Home: Ramp Prior Prior Level of Function SCALE: Activities may be completed with or without assistive devices. 7-Hfdgtpbwby-dvsjmhl completes the activity by him/herself with no assistance from a helper. 5-Set-up or Clean-up Assistance-helper sets up or cleans up; patient completes activity. Curtice assists only prior to or following the activity. 4-Supervision or Touching Assistance-helper provides verbal cues and/or touching/steadying and/or contact guard assistance as patient completes activity. Assistance may be provided throughout the activity or intermittently. 3-Partial/Moderate Assistance-helper does LESS THAN HALF the effort. Curtice lifts, holds or supports trunk or limbs, but provides less than half the effort. 2-Substantial/Maximal Assistance-helper does MORE THAN HALF the effort. Curtice lifts or holds trunk or limbs and provides more than half the effort. 7-Hhuqgttsz-cspfqd does ALL the effort. Patient does none of the effort to complete the activity. Or, the assistance of 2 or more helpers is required for the patient to complete the activity. If activity was not attempted, code reason: 7-Patient Refused. 9-Not Applicable-not attempted and the patient did not perform the activity before the current illness, exacerbation or injury. 10-Not Attempted due to Environmental Limitations-(lack of equipment, weather restraints, etc.). 88-Not Attempted due to Medical Conditions or Safety Concerns. Bed Mobility: 6 Transfers (B,C,W/C): 6 Gait: 6 Stairs: 6 Indoor Mobility (Ambulation): Independent Stairs: Independent Prior Devices Use: None PT Evaluation-Current Subjective Patient agrees to PT. Objective Patient Orientation: Normal For Age Attachments: IV ROM/Strength ROM Lower Extremities bilateral LE WFL Strength Lower Extremities 4/5 grossly bilateral LE all planes Integumentary/Posture Bowel Incontinence: No Bladder Incontinence: No Posture kyphotic Neuromuscular (Tone, Coordination, Reflexes) grossly intact Sensory Vision: Wears Glasses Hearing: Functional Transfers Lying to Sitting/Side of Bed(Q: 6 Sit to Stand (QC): 6 Chair/Dow-mg-Kylbr Xfer(QC): 6 Toilet Transfer (QC): 6 Gait Mode of Locomotion: Walk Anticipated Mode of Locomotion: Walk Walk 10 feet (QC): 6 Walk 50 ft with 2 Turns(QC): 6 Walk 150 ft (QC): 6 Distance: 300' Gait Assistive Device: None Comments/Gait Description safe and functional with no deviation Balance Sitting Static: Normal Sitting Dynamic: Normal Standing Static: Normal Standing Dynamic: Normal Assessment/Needs Patient is currently at independent PLOF with all gross motor skills and does not require skilled PT intervention. Physician notified. Rehab Potential: Fair PT Plan Treatment/Plan Treatment Plan: Discontinue PT, goals met Treatment Duration: Jan 26, 2022 Frequency: 1 time per week Estimated Hrs Per Day: .25 hour per day Patient and/or Family Agrees t: Yes Time/GCodes Time In: 947 Time Out: 956 Total Billed Treatment Time: 9 Total Billed Treatment 1 visit EVLowC 9 min HERNANDEZ MACKENZIE PT Jan 26, 2022 10:07
[2022-01-26] MEDS: SUCRALFATE 1 GM (CARAFATE) TAB PO SCH ×3 (11:04→20:34)
--- NOTE | 2022-01-26 13:00 | Anesthesia-General Post-Op ---
MAC Patient Condition Mental Status/LOC: Same as Preop Cardiovascular: Satisfactory Nausea/Vomiting: Absent Respiratory: Satisfactory Pain: Controlled Complications: Absent Post Op Complications Complications None Follow Up Care/Instructions Patient Instructions None needed. Anesthesiology Discharge Order Discharge Order Patient is doing well, no complaints, stable vital signs, no apparent adverse anesthesia problems. No complications reported per nursing. NATALIIA OKEEFE CRNA Jan 26, 2022 13:00
--- NOTE | 2022-01-26 13:47 | OPERATIVE REPORT ---
DATE OF SERVICE: 01/26/2022 PREOPERATIVE DIAGNOSES: Anemia, melena. POSTOPERATIVE DIAGNOSES: Duodenal ulcer, small hiatal hernia, diverticulosis. 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 PROCEDURE: EGD with biopsies, colonoscopy. ESTIMATED BLOOD LOSS: None. COMPLICATIONS: None. INDICATIONS: The patient is an 82-year-old male who was admitted with anemia needing endoscopy for further evaluation. He understands risks and benefits of procedure and wishes to proceed. Consent was signed in the chart. DESCRIPTION OF PROCEDURE: The patient was taken to the endoscopy suite, placed in left lateral recumbent position. Timeout was performed. Scope was inserted in mouth, down the esophagus, stomach and into the duodenum. No active bleeding present. Duodenal ulcer present. Biopsy of the duodenal ulcer was obtained. Scope was then slowly retracted back to stomach where it was further insufflated. No polyps, masses or ulcerations. Biopsy of the antrum was obtained. Scope was retroflexed noting a very small hiatal hernia, no other pathology. Scope was returned to its normal position, slowly withdrawn to distal esophagus, which had normal appearance. Scope was slowly retracted back until completely remove noting no other pathology. Digital rectal exam was performed. No palpable polyps, masses or ulcerations. Scope was inserted in the rectum, advanced all the way to cecum with minimal difficulty. Prep was adequate with irrigation and suction. Scope was then slowly retracted back. No polyps, masses or ulcerations within the cecum, ascending, transverse, descending and sigmoid colon. In the sigmoid colon, moderate amount of diverticulosis present. Scope was then continuously retracted back in the rectum, where it was also retroflexed noting no other pathology. Scope was returned to its normal position, slowly withdrawn until completely removed. The patient tolerated procedure well without any complications, taken to recovery room in stable condition. RECOMMENDATIONS: The patient to continue on Protonix and add Carafate, await biopsy results. We will continue on clear liquids and hold anticoagulation. Job ID: [id number] DocumentID: [id number] Dictated Date: 01/26/2022 10:47:22 Housekeeping Supervisor Hotel Date: 01/26/2022 13:47:00 Dictated By: BAYRON VILLALPANDO DO
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
[2022-01-26] MEDS: metFORMIN 500 MG (GLUCOPHAGE) TAB PO SCH (18:05)
[2022-01-26] MEDS ORDERED: meTOprolol TARTRATE 25 MG (LOPRESSOR) TABLET PO SCH (21:00)
[2022-01-27 00:28] VITALS: BP 166/79
[2022-01-27] MEDS: inSUlin ASPART (NovoLOG) 1 UNIT/0.01 ML (CHARGE PER UNIT) SC SCH ×5 (00:58→20:18)
[2022-01-27 04:21] VITALS: BP 131/82
[2022-01-27] MEDS: SUCRALFATE 1 GM (CARAFATE) TAB PO SCH ×4 (06:10→20:21)
[2022-01-27] MEDS: NS IV 1000 ML 1,000 ML IV SCH (06:11)
[2022-01-27] MEDS: LACTATED RINGERS 1,000 ML IV SCH ×2 (06:14→14:44)
[2022-01-27 07:25] VITALS: BP 129/82
--- NOTE | 2022-01-27 07:50 | Progress Note - Surgery ---
CARLO RITCHIE 01/27/22 0750: Subjective Date Seen by a Provider: Jan 27, 2022 Time Seen by a Provider: 07:45 Subjective/Events-last exam Patient is awake and alert in his bed this morning, no family at bedside. Patient reports feeling well overall, denies any abdominal pain, N/V. Patient has no new complaints. Review of Systems General: No Chills, No Night Sweats HEENT: No Visual Changes, No Eye Pain Pulmonary: No Dyspnea, No Cough Cardiovascular: No: Chest Pain, Palpitations, Orthopnea Gastrointestinal: No: Nausea, Vomiting, Abdominal Pain Genitourinary: No Dysuria, No Frequency Musculoskeletal: No: neck pain, shoulder pain Neurological: No: Weakness, Numbness Objective Exam Vital Signs Date Time Temp Pulse Resp B/P (MAP) Pulse Ox O2 Delivery O2 Flow Rate FiO2 01/27/22 07:25 37.5 78 18 129/82 (98) 95 Room Air 01/27/22 07:05 89 01/27/22 04:21 36.7 72 18 131/82 (98) 94 Room Air 01/27/22 01:00 66 01/27/22 00:28 37.3 69 18 166/79 (108) 96 Room Air 01/26/22 20:30 Room Air 01/26/22 19:41 37.5 63 16 161/83 (109) 100 Room Air 01/26/22 19:00 70 01/26/22 15:47 37.0 85 16 160/86 (110) 98 Room Air 01/26/22 13:00 107 01/26/22 12:00 36.5 69 16 162/82 (108) 98 Room Air 01/26/22 09:31 36.2 73 16 166/87 (113) 95 Room Air 01/26/22 08:15 37.80291 77 16 99 Room Air 01/26/22 08:10 37.71418 77 16 99 OxyMask 10.00 01/26/22 08:00 Room Air I & O 01/27/22 07:00 Intake Total 2040 ml Balance 2040 ml Capillary Refill : Less Than 3 Seconds General Appearance: No Apparent Distress, WD/WN HEENT: PERRL/EOMI, Normal ENT Inspection Neck: Non Tender, Supple Respiratory: Lungs Clear, No Respiratory Distress Cardiovascular: Regular Rate, Rhythm, No Murmur Gastrointestinal: non tender, soft Extremity: Normal Inspection, No Pedal Edema Neurologic/Psychiatric: Alert, Normal Mood/Affect Skin: Normal Color, Warm/Dry Lymphatic: No Adenopathy Results Lab Laboratory Tests 01/26/22 11:51: Glucometer 184H 01/26/22 17:22: Glucometer 151H 01/26/22 23:33: Glucometer 133H 01/27/22 06:08: Glucometer 153H Microbiology 01/23/22 MRSA Screen - Final, Complete MRSA not isolated Assessment/Plan Assessment/Plan Assessment/Plan Anemia Melena Weakness CKD Long-term anticoagulation Post EGD, duodenal ulcer Follow Hg, transfuse as needed, currently 8.7 Currently on clears Continue PPI Continue carafate Continue IV fluids Hold anticoagulants BAYRON VILLALPANDO DO 01/27/22 1621: Subjective Subjective/Events-last exam Patient doing okay. Tolerating diet. No blood in stool. No abdominal pain. Hgb stable. Denies n/v fever sweats chills shortness of breath or chest pain. Objective Exam General Appearance: No Apparent Distress, WD/WN HEENT: PERRL/EOMI, Normal ENT Inspection Neck: Non Tender, Supple Respiratory: Chest Non Tender, No Accessory Muscle Use, No Respiratory Distress Cardiovascular: Regular Rate, Rhythm, No JVD Gastrointestinal: non tender, soft Extremity: Normal Inspection, Non Tender Neurologic/Psychiatric: Alert, Oriented x3, Normal Mood/Affect Skin: Normal Color, Warm/Dry Lymphatic: No Adenopathy Assessment/Plan Assessment/Plan Assessment/Plan Anemia Melena Weakness CKD Long-term anticoagulation Post EGD, duodenal ulcer Follow Hg, transfuse as needed, currently 8.7 Currently on clears advance diet as tolerates Continue PPI Continue carafate Continue IV fluids Hold anticoagulants If hgb stable after advancing diet okay with dc home tomorrow. Supervisory-Addendum Brief Verification & Attestation Participated in pt care: history, MDM, physical Personally performed: exam, history, MDM, supervision of care Care discussed with: Medical Student Procedures: n/a Results interpretation: Verified all documentation Verification and Attestation of Medical Student E/M Service A medical student performed and documented this service in my presence. I reviewed and verified all information documented by the medical student and made modifications to such information, when appropriate. I personally performed the physical exam and medical decision making. Bayron Villalpando, Jan 27, 2022,16:20 CARLO RITCHIE Jan 27, 2022 07:50 BAYRON VILLALPANDO DO Jan 27, 2022 16:21
[2022-01-27] MEDS: metFORMIN 500 MG (GLUCOPHAGE) TAB PO SCH ×2 (08:59→17:57)
[2022-01-27] MEDS: ASPIRIN E.C. 81 MG (ECOTRIN) TAB PO SCH (08:59)
[2022-01-27] MEDS: PANTOPRAZOLE 40 MG (PROTONIX) VIAL IV SCH (08:59)
[2022-01-27] MEDS: lisINopril 40 MG (PRINIVIL) TABLET PO SCH (09:00)
[2022-01-27] MEDS: amLODIPine 10 MG (NORVASC) TAB PO SCH (09:00)
[2022-01-27] MEDS: AtorvaSTATin TABLET 10 MG TABLET PO SCH (09:00)
[2022-01-27 11:07] VITALS: BP 131/85
[2022-01-27] MEDS ORDERED: SUCR1TAB PO (11:12)
[2022-01-27] MEDS ORDERED: PANT40TA52 PO (11:12)
[2022-01-27 15:27] VITALS: BP 178/84
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
--- NOTE | 2022-01-27 17:44 | Physician Query Clarification ---
Physician Query-General Query to Physician: The medical record reflects the following clinical evidence: Clinical Indicators: Admission H/H 7.3/21 decreased to 6.7/19 and then improved to 8.7/ after blood and anticoagulants held Risk Factor(s): On aspirin and Xarelto at home fpc Treatment: Transfusion of 1 unit PRBC's, Holding Xarelto and Aspirin, Surgery consult and EGD, H/H monitoring, 1. Hemorrhagic disorder d/t extrinsic circulating anticoagulants, present on a dmission 2. Other explanation of clinical findings 3. Unable to determine (no explanation for clinical findings) Please clarify and document your clinical opinion in the progress notes and discharge summary including the definitive and/or presumptive diagnosis, (suspected or probable), related to the above clinical findings. Please include clinical findings supporting your diagnosis. Nasrin Read RN, MSN Clinical Management Recruiter [phone] [email or web address] PHYSICIAN RESPONSE: Based on the clinical findings in the record, please respond to the query above on this document as an addendum. Physician Response: Physician Response 2 Other Physician: Hemorrhage due to bleeding duodenal ulcer If you have questions please contact: Coordinator Cardiopulmonary Services: Ext: Thank you for your time and cooperation. Clinical Management Recruiter/Coordinator Cardiopulmonary Services This is a permanent part of the medical record NASRIN READ Jan 27, 2022 17:44 STEF STEPHENS MD Jan 28, 2022 21:14
[2022-01-27 19:19] VITALS: BP 131/72
[2022-01-27] MEDS: PANTOPRAZOLE 40 MG (PROTONIX) TAB PO SCH (20:21)
[2022-01-28 00:24] VITALS: BP 135/77
[2022-01-28 04:58] VITALS: BP 162/84
[2022-01-28] MEDS: SUCRALFATE 1 GM (CARAFATE) TAB PO SCH (05:10)
[2022-01-28] MEDS: inSUlin ASPART (NovoLOG) 1 UNIT/0.01 ML (CHARGE PER UNIT) SC SCH (05:10)
[2022-01-28 05:23] LABS: HEMATOCRIT 25 % (40-54); HEMOGLOBIN 8.4 g/dL (13.3-17.7); MEAN CORPUSCULAR HEMOGLOBIN 30 pg (25-34); MEAN CORPUSCULAR HGB CONC 33 g/dL (32-36); MEAN CORPUSCULAR VOLUME 91 fL (80-99); MEAN PLATELET VOLUME 9.8 fL (9.0-12.2); PLATELET COUNT 287 10^3/uL (130-400); WHITE BLOOD COUNT 6.1 10^3/uL (4.3-11.0)
[2022-01-28 05:43] LABS: CREATININE SERUM 0.94 MG/DL (0.60-1.30); POTASSIUM 3.6 MMOL/L (3.6-5.0)
--- NOTE | 2022-01-28 07:18 | Progress Note - Surgery ---
CARLO RITCHIE 01/28/22 0717: Subjective Date Seen by a Provider: Jan 28, 2022 Time Seen by a Provider: 07:15 Subjective/Events-last exam Patient is awake and alert in his chair this morning, no family at bedside. Patient reports that he is feeling well overall, no abdominal pain, N/V. Patient reports that he has been tolerating his diet well. Patient has no new complaints. Review of Systems General: No Chills, No Night Sweats HEENT: No Head Aches, No Visual Changes, No Eye Pain Pulmonary: No Dyspnea, No Cough Cardiovascular: No: Chest Pain, Palpitations, Orthopnea Gastrointestinal: No: Nausea, Vomiting, Abdominal Pain Genitourinary: No Dysuria, No Frequency Musculoskeletal: No: neck pain, shoulder pain Neurological: No: Weakness, Numbness, Incoordination Objective Exam Vital Signs Date Time Temp Pulse Resp B/P (MAP) Pulse Ox O2 Delivery O2 Flow Rate FiO2 01/28/22 04:58 37.0 78 16 162/84 (110) 95 Room Air 01/28/22 00:24 38.0 71 18 135/77 (96) 97 Room Air 01/27/22 20:26 Room Air 01/27/22 19:19 36.8 84 18 131/72 (91) 98 Room Air 01/27/22 15:27 36.0 82 18 178/84 (115) 94 Room Air 01/27/22 12:00 90 01/27/22 11:07 37.5 80 18 131/85 (100) 96 Room Air 01/27/22 08:00 Room Air 01/27/22 07:25 37.5 78 18 129/82 (98) 95 Room Air I & O 01/28/22 07:00 Intake Total 1070 ml Balance 1070 ml Capillary Refill : Less Than 3 Seconds General Appearance: No Apparent Distress, WD/WN HEENT: PERRL/EOMI, Normal ENT Inspection Neck: Non Tender, Supple Respiratory: Lungs Clear, No Respiratory Distress Cardiovascular: Regular Rate, Rhythm, No Murmur Gastrointestinal: non tender, soft Extremity: Normal Inspection, No Pedal Edema Neurologic/Psychiatric: Alert, Normal Mood/Affect Skin: Normal Color, Warm/Dry Lymphatic: No Adenopathy Results Lab Laboratory Tests 01/27/22 11:02: Glucometer 223H 01/27/22 12:33: Lab Scanned Report Transfusion Reaction Form 01/27/22 17:52: Glucometer 130H 01/28/22 00:28: Glucometer 241H 01/28/22 05:01: Glucometer 189H 01/28/22 05:13: White Blood Count 6.1, Red Blood Count 2.78L, Hemoglobin 8.4L, Hematocrit 25L, Mean Corpuscular Volume 91, Mean Corpuscular Hemoglobin 30, Mean Corpuscular Hemoglobin Concent 33, Red Cell Distribution Width 14.2, Platelet Count 287, Mean Platelet Volume 9.8, Sodium Level 139, Potassium Level 3.6, Chloride Level 104, Carbon Dioxide Level 21, Anion Gap 14, Blood Urea Nitrogen 10, Creatinine 0.94, Estimat Glomerular Filtration Rate 81, BUN/Creatinine Ratio 11, Glucose Level 179H, Calcium Level 10.0 Microbiology 01/23/22 MRSA Screen - Final, Complete MRSA not isolated Assessment/Plan Assessment/Plan Assessment/Plan Anemia Melena Weakness CKD Long-term anticoagulation Post EGD, duodenal ulcer Follow Hg, transfuse as needed, currently 8.4 Currently on bland diet for PUD Continue PPI Continue carafate Continue IV fluids BAYRON VILLALPANDO DO 01/28/22 1724: Subjective Subjective/Events-last exam Patient doing well. Wanting to go home. Hemoglobin stable. No abdominal pain no nausea vomiting. Tolerating diet. No complaints at this time. Denies nausea vomiting fever sweats chills shortness of breath or chest pain. Objective Exam General Appearance: No Apparent Distress, WD/WN HEENT: PERRL/EOMI, Normal ENT Inspection Neck: Non Tender, Supple Respiratory: Lungs Clear, No Accessory Muscle Use, No Respiratory Distress Cardiovascular: Regular Rate, Rhythm, No JVD Gastrointestinal: non tender, soft Extremity: Normal Inspection Neurologic/Psychiatric: Alert, Oriented x3, Normal Mood/Affect Skin: Normal Color, Warm/Dry Lymphatic: No Adenopathy Assessment/Plan Assessment/Plan Assessment/Plan Anemia Melena Weakness CKD Long-term anticoagulation Post EGD, duodenal ulcer Currently on bland diet for PUD Continue PPI Continue carafate Continue IV fluids Discussed repeat egd in 6 weeks to reevaluate f/u outpatient Supervisory-Addendum Brief Verification & Attestation Participated in pt care: history, MDM, physical Personally performed: exam, history, MDM, supervision of care Care discussed with: Medical Student Procedures: n/a Results interpretation: Verified all documentation Verification and Attestation of Medical Student E/M Service A medical student performed and documented this service in my presence. I reviewed and verified all information documented by the medical student and made modifications to such information, when appropriate. I personally performed the physical exam and medical decision making. Bayron Villalpando, Jan 28, 2022,17:24 CARLO RITCHIE Jan 28, 2022 07:17 BAYRON VILLALPANDO DO Jan 28, 2022 17:24
[2022-01-28 07:43] VITALS: BP 160/87
[2022-01-28] MEDS: PANTOPRAZOLE 40 MG (PROTONIX) TAB PO SCH (08:52)
[2022-01-28] MEDS: ASPIRIN E.C. 81 MG (ECOTRIN) TAB PO SCH (08:52)
[2022-01-28] MEDS: amLODIPine 10 MG (NORVASC) TAB PO SCH (08:52)
[2022-01-28] MEDS: lisINopril 40 MG (PRINIVIL) TABLET PO SCH (08:52)
[2022-01-28] MEDS: AtorvaSTATin TABLET 10 MG TABLET PO SCH (08:52)
[2022-01-28] MEDS: metFORMIN 500 MG (GLUCOPHAGE) TAB PO SCH (08:53)
[2022-01-28] MEDS ORDERED: RIVAROXABAN 15 MG TABLET (XARELTO) PO SCH (09:00)
[2022-01-28 11:00] VITALS: BP 160/87
--- NOTE | 2022-01-28 16:39 | Discharge Summary ---
Discharge Summary Hospital Course Problems/Dx: (1) Duodenal ulcer Status: Acute (2) GI bleed Status: Acute Qualifiers: Qualified Codes: K92.2 - Gastrointestinal hemorrhage, unspecified (3) Anemia due to GI blood loss Status: Acute (4) Atrial fibrillation Status: Acute (5) Primary hypertension Status: Chronic (6) Type 2 diabetes mellitus with complication Status: Chronic (7) Renal lesion Status: Acute Hospital Course Date of Admission: Jan 24, 2022 at 09:26 Admission Diagnosis : GI bleed Family Physician/Provider: Gerson Nicole MD Date of Discharge: 01/28/22 Discharge Diagnosis: Acute upper GI bleeding due to duodenal ulcer, acute blood loss anemia, renal lesion Hospital Course: Devin Arrington is an 82 year old male with PMH AFib on Xarelto who presented with upper GI bleeding. Surgery was consulted and performed EGD/colonoscopy. He was found to have a duodenal ulcer. He was treated with PPI and Carafate. He was restarted on his Xarelto on discharge. He should follow up with his PCP in about a week. He will need a follow up hemoglobin check. He was discharged home in stable condition. Labs and Pending Lab Test: Laboratory Tests 01/27/22 17:52: Glucometer 130H 01/28/22 00:28: Glucometer 241H 01/28/22 05:01: Glucometer 189H 01/28/22 05:13: White Blood Count 6.1, Red Blood Count 2.78L, Hemoglobin 8.4L, Hematocrit 25L, Mean Corpuscular Volume 91, Mean Corpuscular Hemoglobin 30, Mean Corpuscular Hemoglobin Concent 33, Red Cell Distribution Width 14.2, Platelet Count 287, Mean Platelet Volume 9.8, Sodium Level 139, Potassium Level 3.6, Chloride Level 104, Carbon Dioxide Level 21, Anion Gap 14, Blood Urea Nitrogen 10, Creatinine 0.94, Estimat Glomerular Filtration Rate 81, BUN/Creatinine Ratio 11, Glucose Level 179H, Calcium Level 10.0 Microbiology 01/23/22 MRSA Screen - Final, Complete MRSA not isolated Home Meds Active Pantoprazole Sodium 40 Mg Tablet.dr 40 Mg PO BID 60 Days Sucralfate 1 Gram Tablet 1 Gm PO ACHS 30 Days Reported Vitamin D3 (Cholecalciferol (Vitamin D3)) 10 Mcg (400 Unit) Tablet 20 Mcg PO DAILY TAKE 2 (10MCG) TABLETS Tylenol (Acetaminophen) 325 Mg Tablet 650 Mg PO Q6H PRN Xarelto (Rivaroxaban) 15 Mg Tablet 15 Mg PO DAILY Fish Oil 1,200 mg Softgel ([place]-3 Fatty Acids/Fish Oil) 360 Mg-1,200 Mg Capsule 1,200 Mg PO BID Aspirin EC (Aspirin) 81 Mg Tablet.dr 81 Mg PO DAILY Amlodipine Besylate 10 Mg Tablet 10 Mg PO DAILY Metformin HCl 500 Mg Tablet 1,000 Mg PO BID TAKE 2 (500MG) TABLETS Glipizide 10 Mg Tablet 10 Mg PO BID Lisinopril 40 Mg Tablet 40 Mg PO DAILY Minoxidil 10 Mg Tab 15 Mg PO BID TAKE 1 (10MG) TABLETS Hydrochlorothiazide 25 Mg Tablet 25 Mg PO DAILY Assessment/Pt Instructions See instructions Discharge Planning: >30 minutes discharge planning Discharge Instructions Discharge Diet: Low Sodium Diet Activity as Tolerated: Yes Consultations Surgery Discharge Physical Examination Vital Signs Vital Signs Date Time Temp Pulse Resp B/P (MAP) Pulse Ox O2 Delivery O2 Flow Rate FiO2 01/28/22 11:00 36.7 73 18 160/87 99 Room Air 01/26/22 08:10 10.00 General Appearance: No Apparent Distress, WD/WN Respiratory: Lungs Clear, No Respiratory Distress Cardiovascular: No Murmur, Irregularly Irregular Extremity: Normal Inspection, No Pedal Edema Skin: Normal Color, Warm/Dry Neurologic/Psychiatric: Alert, Normal Mood/Affect Allergies: Coded Allergies: No Known Drug Allergies (Unverified , 12/23/21) Copy Copies To 1: GERSON NICOLE MD Discharge Summary Date of Admission Jan 24, 2022 at 09:26 Date of Discharge Jan 28, 2022 at 11:00 Discharge Date: Jan 28, 2022 Discharge Time: 11:00 Admission Diagnosis GI Bleed Consults/Procedures Consulations Surgery Procedures EGD/colonoscopy Discharge Diagnosis GI Bleed Duodenal ulcer Acute blood loss anemia HTN AFib NIDDMII Renal lesion (1) Duodenal ulcer Status: Acute (2) GI bleed Status: Acute Qualifiers: Qualified Codes: K92.2 - Gastrointestinal hemorrhage, unspecified (3) Anemia due to GI blood loss Status: Acute (4) Atrial fibrillation Status: Acute (5) Primary hypertension Status: Chronic (6) Type 2 diabetes mellitus with complication Status: Chronic (7) Renal lesion Status: Acute STEF STEPHENS MD Jan 28, 2022 16:39
== END 2022-01-28 11:00 | disposition home or self-care (01) | DRG 378 ==
LOC: EDUNIT# 12:21 → ER 12:23 → 4TH 16:40 → OBSVTOIN 01-24 09:26 → 4TH 01-26 16:46
PROVIDERS: ADMIT Family Medicine; ATTEND Internal Medicine
PROC: 0DJD8ZZ Inspection of Lower Intestinal Tract, Via Natural or Artificial Opening Endoscopic (ICD-10-PCS; 2022-01-26)
PROC: 0DB98ZX Excision of Duodenum, Via Natural or Artificial Opening Endoscopic, Diagnostic (ICD-10-PCS; principal; 2022-01-26 07:40)
PROC: 0DB78ZX Excision of Stomach, Pylorus, Via Natural or Artificial Opening Endoscopic, Diagnostic (ICD-10-PCS; 2022-01-26 07:40)
DX: K26.0 Acute duodenal ulcer with hemorrhage (principal); D62 Acute posthemorrhagic anemia; K44.9 Diaphragmatic hernia without obstruction or gangrene; K57.90 Diverticulosis of intestine, part unspecified, without perforation or abscess without bleeding; I48.91 Unspecified atrial fibrillation; I12.9 Hypertensive chronic kidney disease with stage 1 through stage 4 chronic kidney disease, or unspecified chronic kidney disease; E11.22 Type 2 diabetes mellitus with diabetic chronic kidney disease; Z66 Do not resuscitate; N18.30 Chronic kidney disease, stage 3 unspecified; H54.7 Unspecified visual loss; N28.9 Disorder of kidney and ureter, unspecified; Z79.84 Long term (current) use of oral hypoglycemic drugs; Z79.01 Long term (current) use of anticoagulants; Z87.891 Personal history of nicotine dependence; Z85.46 Personal history of malignant neoplasm of prostate; Z85.828 Personal history of other malignant neoplasm of skin; Z90.79 Acquired absence of other genital organ(s)
CPT/HCPCS: 36415; 71260; 74177; 80048; 80053; 82274; 82947; 85014; 85018; 85025; 85027; 85610; 85730; 86850; 86900; 86901; 86920; 87081; 88305; 96374; G0378

== ENCOUNTER 2023-01-15 13:57 | Emergency (ER) | payer MEDICARE, MEDICAID ==
[~2023-01-15] VITALS: Ht 190 cm; Wt 88.0 kg
[~2023-01-15 13:57] MED LIST: ACET325T38 PO; AMLO-251 PO; ASPI-1238 PO; ATOR10TA66 PO; CHOL400T PO; GLIP10TA13 PO; HYDR25TA4 PO; LISI40TA9 PO; METF-397 PO; METO-333 PO; NF-MINO10T PO; OMEG-109 PO; PANT40TA52 PO; RIVA15TA PO; SUCR1TAB PO
[2023-01-15] MEDS ORDERED: NS IV 1000 ML 1,000 ML IV STA ×2 (14:07→15:14)
[2023-01-15] MEDS ORDERED: ACETAMINOPHEN 325 MG TABLET PO ONE (14:15)
[2023-01-15 14:20] LABS: BASOPHILS # (AUTO) 0.1 10^3/uL (0.0-0.1); BASOPHILS % (AUTO) 1 % (0-10); EOSINOPHILS % (AUTO) 0 % (0-10); HEMATOCRIT 45 % (40-54); HEMOGLOBIN 14.4 g/dL (13.3-17.7); LYMPHOCYTES % (AUTO) 9 % (12-44); MEAN CORPUSCULAR HEMOGLOBIN 26 pg (25-34); MEAN CORPUSCULAR HGB CONC 32 g/dL (32-36); MEAN CORPUSCULAR VOLUME 81 fL (80-99); MEAN PLATELET VOLUME 11.3 fL (9.0-12.2); MONOCYTES # (AUTO) 1.3 10^3/uL (0.0-1.0); MONOCYTES % (AUTO) 13 % (0-12); NEUTROPHILS # (AUTO) 8.2 10^3/uL (1.8-7.8); NEUTROPHILS % (AUTO) 77 % (42-75); PLATELET COUNT 220 10^3/uL (130-400); WHITE BLOOD COUNT 10.6 10^3/uL (4.3-11.0)
[2023-01-15 14:26] LABS: ALBUMIN 4.5 GM/DL (3.2-4.5)
[2023-01-15 14:27] LABS: POTASSIUM 3.7 MMOL/L (3.6-5.0)
[2023-01-15 14:28] LABS: CALCIUM 10.9 MG/DL (8.5-10.1)
[2023-01-15 14:29] LABS: TOTAL PROTEIN 8.3 GM/DL (6.4-8.2)
[2023-01-15 14:31] LABS: BILIRUBIN,TOTAL 0.6 MG/DL (0.1-1.0)
[2023-01-15 14:33] LABS: CREATININE SERUM 1.25 MG/DL (0.60-1.30)
[2023-01-15 14:38] LABS: INR 1.3 (0.8-1.4); PROTHROMBIN TIME PATIENT 16.6 SEC (12.2-14.7)
--- NOTE | 2023-01-15 14:51 | Diagnostic Imaging Report ---
INDICATION: Dry cough, weakness, dizziness, fever. COMPARISON: Exam is compared to 12/23/2021. FINDINGS: There is some prominence of the perihilar interstitial lung markings with likely airway thickening and streaky interstitial opacities. No alveolar consolidation or bronchograms. No effusion or pneumothorax. No failure pattern. IMPRESSION: Perihilar interstitial opacities may reflect a viral pattern or reactive airway disease. No alveolar consolidation or failure. Dictated by: Dictated on workstation # [id number]
--- NOTE | 2023-01-15 15:24 | ED General ---
General Chief Complaint: Fever-Adult/Adol Stated Complaint: FEVER | WEAKNESS Nursing Triage Note: PT ARRIVED PER EMS, PT HAS BEEN SICK FOR A FEW DAYS, PT HAS FEVERS UP TO 102. WEAKNESS,VOMITING, DIZZINESS, AND SL COUGH. PT STATES SOME PEOPLE IN THEIR ORIENTAL [employer]THODOX HAVE COVID Source of Information: Patient, EMS Exam Limitations: No Limitations History of Present Illness Date Seen by Provider: Jan 15, 2023 Time Seen by Provider: 13:58 Initial Comments Patient is an 83-year-old male with a history of hypertension, A-fib, diabetes, chronically anticoagulated on Xarelto who presents to the emergency department from home with a chief complaint of generalized weakness. Patient has been feeling ill for a couple of days. Reported to EMS that he had dark urine. He did have an episode of vomiting today prior to EMS arrival. Apparently some people in the patient's hindu have recently had COVID. Patient states that he is COVID vaccinated x2 shots. He denies chest pain, shortness of breath. Denies abdominal pain. Denies diarrhea, black or bloody stools. Apparently felt very dizzy when standing to get on the EMS cot. Timing/Duration: 2-3 Days Severity: Moderate Associated Systoms: Cough, Fever/Chills, Malaise, Nausea/Vomiting, Weakness Allergies and Home Medications Allergies Coded Allergies: No Known Drug Allergies (Unverified , 12/23/21) Patient Home Medication List Home Medication List Reviewed: Yes Acetaminophen (Tylenol) 325 Mg Tablet, 650 MG PO Q6H PRN for PAIN-MILD (1-4), (Reported) Entered as Reported by: DARLENE REES on 01/26/2234 Amlodipine Besylate (Amlodipine Besylate) 10 Mg Tablet, 10 MG PO DAILY, (Reported) Entered as Reported by: ALEC STUBBS on 01/24/22635 Aspirin (Aspirin EC) 81 Mg Tablet.dr, 81 MG PO DAILY, (Reported) Entered as Reported by: ALEC STUBBS on 01/24/22635 Cholecalciferol (Vitamin D3) (Vitamin D3) 10 Mcg (400 Unit) Tablet, 20 MCG PO DAILY, (Reported) Entered as Reported by: DARLENE REES on 01/26/2234 Glipizide (Glipizide) 10 Mg Tablet, 10 MG PO BID, (Reported) Entered as Reported by: ALEC STUBBS on 01/24/22 0636 Hydrochlorothiazide (Hydrochlorothiazide) 25 Mg Tablet, 25 MG PO DAILY, (Reported) Entered as Reported by: ALEC STUBBS on 01/24/2229 Lisinopril (Lisinopril) 40 Mg Tablet, 40 MG PO DAILY, (Reported) Entered as Reported by: ALEC STUBBS on 01/24/22635 Metformin HCl (Metformin HCl) 500 Mg Tablet, 1,000 MG PO BID, (Reported) Entered as Reported by: ALEC STUBBS on 01/24/2236 Minoxidil (Minoxidil) 10 Mg Tab, 15 MG PO BID, (Reported) Entered as Reported by: ALEC STUBBS on 01/24/22628 [place]-3 Fatty Acids/Fish Oil (Fish Oil 1,200 mg Softgel) 360 Mg-1,200 Mg Capsule, 1,200 MG PO BID, (Reported) Entered as Reported by: ALEC STUBBS on 01/24/2236 Ondansetron (Ondansetron Odt) 4 Mg Tab.rapdis, 4 MG SL Q8H PRN for NAUSEA/VOMITING Prescribed by: SILVERIO HOSKINS on 01/15/23 1638 Pantoprazole Sodium (Pantoprazole Sodium) 40 Mg Tablet.dr, 40 MG PO BID Prescribed by: STEF STEPHENS on 01/27/22 111 Rivaroxaban (Xarelto) 15 Mg Tablet, 15 MG PO DAILY, (Reported) Entered as Reported by: DARLENE REES on 01/26/22 0934 Sucralfate (Sucralfate) 1 Gram Tablet, 1 GM PO ACHS Prescribed by: STEF STEPHENS on 01/27/22 1112 Review of Systems Review of Systems Constitutional: see HPI, fever, malaise, weakness EENTM: no symptoms reported Respiratory: cough Cardiovascular: no symptoms reported Gastrointestinal: vomiting Genitourinary: other ("dark urine") Musculoskeletal: no symptoms reported Skin: no symptoms reported Psychiatric/Neurological: No Symptoms Reported Past Iifvvim-Yehyat-Njkewp Hx Patient Social History Tobacco Use?: No Smoking Status: Former Smoker Substance use?: No Alcohol Use?: No Pt feels they are or have been: No Immunizations Up To Date First/Initial COVID19 Vaccinat: 2020 Second COVID19 Vaccination Lauri: 2020 Third COVID19 Vaccination Date: 2020 Past Medical History Surgery/Hospitalization HX: AFIB, DIABETIC, HTN, CKD STAGE 3 Ear Surgery, Prostatectomy Respiratory: No Cardiac: Yes Atrial Fibrillation, Hypertension Neurological: No Reproductive Disorders: No Sexually Transmitted Disease: No HIV/AIDS: No Genitourinary: Yes Prostate Problems, Renal Failure Gastrointestinal: Yes Diverticulosis Musculoskeletal: No Endocrine: Yes Diabetes, Non-Insulin dep HEENT: No Loss of Vision: Denies Cancer: Yes Prostate, Skin Psychosocial: No Integumentary: No Blood Disorders: No Family Medical History Completed stroke 19 FATHER (Passed from stroke at 75, patient states had multiple) 19 MOTHER (Passed from stroke at 62) Diabetes mellitus 19 FATHER 19 MOTHER Diabetes, Stroke Physical Exam Vital Signs Vital Signs - First Documented 01/15/23 01/15/23 14:00 19:49 Temp 37.8 Pulse 82 Resp 29 B/P (MAP) 148/94 (112) Pulse Ox 97 O2 Delivery Room Air Capillary Refill : Height, Weight, BMI Height: '" Weight: lbs. oz. kg; 24.00 BMI Method: General Appearance: No Apparent Distress, WD/WN Eyes: Bilateral Eye Normal Inspection, Bilateral Eye PERRL, Bilateral Eye EOMI HEENT: PERRL/EOMI Neck: Normal Inspection Respiratory: Lungs Clear, Normal Breath Sounds, No Accessory Muscle Use, No Respiratory Distress Cardiovascular: Normal Peripheral Pulses, Irregularly Irregular (70'80's) Gastrointestinal: Non Tender, Soft Extremity: Normal Capillary Refill, Normal Inspection, Normal Range of Motion, Non Tender, No Pedal Edema Neurologic/Psychiatric: Alert, Oriented x3, No Motor/Sensory Deficits, Normal Mood/Affect, able bodied tankerman II-XII Norm as Tested Skin: Normal Color, Warm/Dry, Other (feels warm/febrile) Focused Exam Lactate Level 01/15/23 14:05: Lactic Acid Level 1.75 Lactic Acid Level Laboratory Tests Test 01/15/23 14:05 Lactic Acid Level 1.75 MMOL/L (0.50-2.00) Progress/Results/Core Measures Suspected Sepsis SIRS Temperature: Pulse: 82 Respiratory Rate: 29 Laboratory Tests 01/15/23 14:05: White Blood Count 10.6 Blood Pressure 148 /94 Mean: 112 01/15/23 14:05: Lactic Acid Level 1.75 Laboratory Tests 01/15/23 14:05: Creatinine 1.25, INR Comment 1.3, Platelet Count 220, Total Bilirubin 0.6 Results/Orders Lab Results Laboratory Tests Test 01/15/23 14:05 01/15/23 14:10 01/15/23 18:18 Range/Units White Blood Count 10.6 4.3-11.0 10^3/uL Red Blood Count 5.59 H 4.30-5.52 10^6/uL Hemoglobin 14.4 13.3-17.7 g/dL Hematocrit 45 40-54 % Mean Corpuscular Volume 81 80-99 fL Mean Corpuscular Hemoglobin 26 25-34 pg Mean Corpuscular Hemoglobin Concent 32 32-36 g/dL Red Cell Distribution Width 17.8 H 10.0-14.5 % Platelet Count 220 130-400 10^3/uL Mean Platelet Volume 11.3 9.0-12.2 fL Immature Granulocyte % (Auto) 0 % Neutrophils (%) (Auto) 77 H 42-75 % Lymphocytes (%) (Auto) 9 L 12-44 % Monocytes (%) (Auto) 13 H 0-12 % Eosinophils (%) (Auto) 0 0-10 % Basophils (%) (Auto) 1 0-10 % Neutrophils # (Auto) 8.2 H 1.8-7.8 10^3/uL Lymphocytes # (Auto) 1.0 1.0-4.0 10^3/uL Monocytes # (Auto) 1.3 H 0.0-1.0 10^3/uL Eosinophils # (Auto) 0.0 0.0-0.3 10^3/uL Basophils # (Auto) 0.1 0.0-0.1 10^3/uL Immature Granulocyte # (Auto) 0.0 0.0-0.1 10^3/uL Prothrombin Time 16.6 H 12.2-14.7 SEC INR Comment 1.3 0.8-1.4 Activated Partial Thromboplast Time 37 H 24-35 SEC Sodium Level 140 135-145 MMOL/L Potassium Level 3.7 3.6-5.0 MMOL/L Chloride Level 102 98-107 MMOL/L Carbon Dioxide Level 23 21-32 MMOL/L Anion Gap 15 H 5-14 MMOL/L Blood Urea Nitrogen 19 H 7-18 MG/DL Creatinine 1.25 0.60-1.30 MG/DL Estimat Glomerular Filtration Rate 57 BUN/Creatinine Ratio 15 Glucose Level 124 H 70-105 MG/DL Lactic Acid Level 1.75 0.50-2.00 MMOL/L Calcium Level 10.9 H 8.5-10.1 MG/DL Corrected Calcium 10.5 H 8.5-10.1 MG/DL Total Bilirubin 0.6 0.1-1.0 MG/DL Aspartate Amino Transf (AST/SGOT) 21 5-34 U/L Alanine Aminotransferase (ALT/SGPT) 14 0-55 U/L Alkaline Phosphatase 103 40-136 U/L Total Protein 8.3 H 6.4-8.2 GM/DL Albumin 4.5 3.2-4.5 GM/DL Influenza Type A (RT-PCR) Not Detected Not Detecte Influenza Type B (RT-PCR) Not Detected Not Detecte SARS-CoV-2 RNA (RT-PCR) Detected H Not Detecte Urine Color YELLOW Urine Clarity CLEAR Urine pH 5.5 5-9 Urine Specific [place] 1.020 1.016-1.022 Urine Protein 2+ H NEGATIVE Urine Glucose (UA) 3+ H NEGATIVE Urine Ketones 1+ H NEGATIVE Urine Nitrite NEGATIVE NEGATIVE Urine Bilirubin NEGATIVE NEGATIVE Urine Urobilinogen 0.2 < = 1.0 MG/DL Urine Leukocyte Esterase NEGATIVE NEGATIVE Urine RBC (Auto) 1+ H NEGATIVE Urine RBC 5-10 H /HPF Urine WBC RARE /HPF Urine Squamous Epithelial Cells NONE /HPF Urine Crystals NONE /LPF Urine Bacteria FEW H /HPF Urine Casts PRESENT /LPF Urine Hyaline Casts 0-2 H /LPF Urine Mucus NEGATIVE /LPF Urine Culture Indicated CULTURE PENDING My Orders Orders - SILVERIO HOSKINS MD Cbc With Automated Diff (01/15/23 14:07) Comprehensive Metabolic Panel (01/15/23 14:07) Blood Culture (01/15/23 14:07) Sputum Culture (01/15/23 14:07) Urinalysis (01/15/23 14:07) Urine Culture (01/15/23 14:07) Protime With Inr (01/15/23 14:07) Partial Thromboplastin Time (01/15/23 14:07) Chest 1 View, Ap/Pa Only (01/15/23 14:07) Ed Iv/Invasive Line Start (01/15/23 14:07) Ed Iv/Invasive Line Start (01/15/23 14:07) Vital Signs Adult Sepsis Patie Q15M (01/15/23 14:07) O2 (01/15/23 14:07) Remove Rings In Anticipation O (01/15/23 14:07) Lactic Acid Analyzer (01/15/23 14:07) Acetaminophen Tablet (Acetaminophen Ta (01/15/23 14:15) Ns Iv 1000 Ml (Ns Iv 1000 Ml) (01/15/23 14:07) Covid 19 Inhouse Test (01/15/23 14:16) Influenza A And B By Pcr (01/15/23 14:16) Ns Iv 1000 Ml (Ns Iv 1000 Ml) (01/15/23 15:14) Nirmatrelvir/Ritonavir (Paxlovid Co-Pack (01/15/23 16:00) Rx-Nirmatrelvir/Ritonavir(Eua) (Rx-Paxlo (01/15/23 15:55) Bladder Scan (01/15/23 17:54) Medications Given in ED Vital Signs/I&O 01/15/23 01/15/23 14:00 19:49 Temp 37.8 Pulse 82 79 Resp 29 B/P (MAP) 148/94 (112) 156/92 Pulse Ox 97 95 O2 Delivery Room Air 01/16/23 00:00 Intake Total 2000 ml Balance 2000 ml Capillary Refill : Blood Pressure Mean: 112 Progress Note : Time: 18:00 Progress Note Patient seen and evaluated by me. Evaluation today includes physical exam and "septic" workup. This includes CBC, CMP, Coags, Blood cultures and lactic acid, single view CXR, UA and he also had a covid test. Pertinent physical exam findings include wdwn male in NAD who is oriented and with stable VS. He feels very warm to the touch. HEENT exam is WNL. HIs heart is irregularly irregular consistent with his history of afib. Lungs are clear, abdominal exam is benign. He has no skin wounds or rashes. No LE edema. Mentating normally. Ddx based on h7p includes Covid 19 (recently exposed), pneumonia, urinary tract infection Labs, CXR independently reviewed and interpreted by me. His CBC shows a total WBC 10.6 with 77% segmented neutrophils. H7H and platelets are normal. Chemistry generally unremarkable - Bun 19 and creat slightly elevated at 1.25. His LA is 1.75, Coags elevated consistent with his chronic anticoagulation He had a positive Covid test, neg influenza. His CXR per radiologist shows some mild perihilar congestion without consolidative infiltrates. UA was pending at the time of shift change. I anticipated that the patient would be able to be discharged after 2L of Fluids. In shift handoff, I advised my partner, if his urine was reassuring patient could be safely discharged. No clinical or objective findings at the time of shift change to consider admission to be an option. Patient felt better with IVF. Suspect that Covid will run it's course. Patient was treated as well with PO tylenol and started on Paxlovid as he is only 2 days into his symptoms. He would be considered "high risk" due to advanced age. Diagnostic Imaging Diagonstic Imaging: Xray Comments [facility], [place] NAME: WAYNE ABRAMS [facility] REC#: [id number] PT STATUS: REG ER : 1940 PHYSICIAN: SILVERIO HOSKINS MD ADMIT DATE: 01/15/23/ER Draft Date of Exam:01/15/23 CHEST 1 VIEW, AP/PA ONLY INDICATION: Dry cough, weakness, dizziness, fever. COMPARISON: Exam is compared to 12/23/2021. FINDINGS: There is some prominence of the perihilar interstitial lung markings with likely airway thickening and streaky interstitial opacities. No alveolar consolidation or bronchograms. No effusion or pneumothorax. No failure pattern. IMPRESSION: Perihilar interstitial opacities may reflect a viral pattern or reactive airway disease. No alveolar consolidation or failure. Dictated on workstation # [id number] Dict: 01/15/23 1442 Trans: 01/15/23 1451 [id number] Interpreted by: AYLIN PADILLA Electronically signed by: Departure Impression Primary Impression: COVID-19 Disposition: 01 HOME, SELF-CARE Condition: Stable Departure-Patient Inst. Decision time for Depature: 16:35 Referrals: RAYNA TORRES MD (PCP/Family) Primary Care Physician Patient Instructions: COVID-19 ED Add. Discharge Instructions: Drink plenty of fluids to stay well hydrated. Take the Paxlovid as directed until the tablets are gone. If you develop shortness of breath/difficulty breathing, high fever or any other emergent, concerning symptoms - return to the Emergency Department for re-e valuation. Take Tylenol 650mg every 6 hours for fever. Ondansetron/Zofran 4mg every 8 hours as needed for nausea/vomiting. You can take Robitussin for cough. Stay at home for 5 days (counting from the first day of symptoms) and then, when out in public, please mask for an additional 5 days. Scripts Ondansetron (Ondansetron Odt) 4 Mg Tab.rapdis 4 MG SL Q8H PRN for NAUSEA/VOMITING, #12 TAB Prov: SILVERIO HOSKINS MD 01/15/23 Copy Copies To 1: RAYNA TORRES MD, KATHRYN M MD Jan 15, 2023 15:24
[2023-01-15] MEDS ORDERED: RX-NIRMATRELVIR/RITONAVIR (PAXLOVID) #30 TABS PO ONE (15:55)
[2023-01-15] MEDS ORDERED: NIRMATRELVIR/RITONAVIR (PAXLOVID) TABLET PO SCH (16:00)
[2023-01-15] MEDS ORDERED: ONDA4TAB11 SL (16:38)
[2023-01-15 19:02] LABS: BILIRUBIN,URINE NEGATIVE (NEGATIVE); CLARITY,URINE CLEAR; COLOR,URINE YELLOW; GLUCOSE, URINE (UA) 3+ (NEGATIVE); KETONES,URINE 1+ (NEGATIVE); LEUKOCYTE ESTERASE ,URINE NEGATIVE (NEGATIVE); NITRITE,URINE NEGATIVE (NEGATIVE); PH,URINE 5.5 (5-9); PROTEIN,URINE 2+ (NEGATIVE); WBC,URINE RARE /HPF
[2023-01-15 19:03] LABS: BACTERIA,URINE FEW /HPF; HYALINE CASTS, URINE 0-2 /LPF
[2023-01-15 19:49] VITALS: BP 156/92
== END 2023-01-15 19:50 | disposition home or self-care (01) ==
LOC: EDUNIT# 13:57 → ER 14:00
DX: U07.1 COVID-19 (principal); R50.9 Fever, unspecified; R53.1 Weakness; R11.2 Nausea with vomiting, unspecified; R42 Dizziness and giddiness; R05.8 Other specified cough; R53.81 Other malaise; I48.91 Unspecified atrial fibrillation; Z87.891 Personal history of nicotine dependence; Z79.01 Long term (current) use of anticoagulants
CPT/HCPCS: 36415; 71045; 80053; 81000; 83605; 85025; 85610; 85730; 87040; 87077; 87088; 87636